=== PATIENT | female | born 1950 | race American Indian/Alaskan Native ===

== ENCOUNTER 2017-06-18 14:27 | Outpatient (CLI) | payer MEDICARE ==
--- NOTE | 2017-06-21 08:32 | Mammography Report ---
RIGHT DIGITAL DIAGNOSTIC MAMMOGRAM with CAD: 06/18/17 14:27:00 CLINICAL: Status post right benign biopsy for calcifications. COMPARISON:12/21/16 FINDINGS: Stable upper postsurgical scar and stable scattered benign calcifications. Several small right axillary lymph nodes are new compared to the last exam and one of the lymph nodes has an irregular margin which requires additional evaluation. It measures 9 mm. IMPRESSION: Stable benign postsurgical changes. However, a right axillary lymph node requires additional evaluation. We will attempt to obtain prior mammograms for UYDITH comparison. BI-RADS CATEGORY: 0--Needs Additional Evaluation ACR BI-RADS MAMMOGRAPHIC CODES: 0 = Needs additional imaging evaluation; 1 = Negative; 2 = Benign; 3 = Probably benign; 4 = Suspicious; 5 = Malignant; 6 = Known biopsy-proven malignancy COMMENT: 1. Dense breast tissue, i.e., adenosis, fibrocystic changes, etc., may obscure an underlying neoplasm. 2. Approximately 10% of cancers are not detected with mammography. 3. A negative mammography report should not delay biopsy if a clinically suspicious mass is present. COMMENT: Patient follow-up letters are generated by our [employer] application.
== END 2017-06-18 14:28 | disposition home or self-care (01) ==
LOC: SPVWC 14:27
PROVIDERS: ATTEND Surgery
DX: R92.1 Mammographic calcification found on diagnostic imaging of breast (principal)
CPT/HCPCS: G0206-RT

== ENCOUNTER 2018-01-14 13:53 | Outpatient (CLI) | payer MEDICARE ==
--- NOTE | 2018-01-14 14:41 | Mammography Report ---
BILATERAL DIGITAL SCREENING MAMMOGRAM with CAD : 01/14/18 13:53:00 CLINICAL: Routine screening.History of a benign right surgical biopsy for calcifications 06/20/16. COMPARISON:12/11/16 FINDINGS: The breasts are heterogeneously dense, which may obscure small masses.Stable right upper postsurgical scar. Stable bilateral benign calcifications. No mass, architectural distortion or suspicious calcifications. IMPRESSION: No mammographic evidence of malignancy. BI-RADS CATEGORY: 2 -- Benign RECOMMENDATION: Routine mammographic screening in one year. COMMENT: Patient follow-up letters are generated by our [employer] application.
== END 2018-01-14 13:54 | disposition home or self-care (01) ==
LOC: SPVWC 13:53
PROVIDERS: ATTEND Surgery
DX: Z12.31 Encounter for screening mammogram for malignant neoplasm of breast (principal); I10 Essential (primary) hypertension; Z90.49 Acquired absence of other specified parts of digestive tract; Z87.891 Personal history of nicotine dependence
CPT/HCPCS: 77067

== ENCOUNTER 2018-11-17 18:01 | Emergency (ER) | payer MEDICARE ==
--- NOTE | 2018-11-17 18:34 | Emergency Department Report ---
ED General Adult HPI - General Chief complaint: Dyspnea/Respdistress Stated complaint: FOREIGN BODY IN THROAT Time Seen by Provider: 11/17/18 18:26 Source: patient Mode of arrival: Ambulatory Limitations: No Limitations - History of Present Illness Initial comments: Patient is 68-year-old female with history of hypertension. Patient brought to the ER stating that she had a chicken bone stuck in her throat while she was eating. Patient is having difficulty swallowing with his obvious drooling. Patient denied any chest pain, weakness numbness or tingling sensation. Severity scale (0 -10): 8 - Related Data Home Medications Medication Instructions Recorded Confirmed Last Taken Amlodipine Besylate/Benazepril 1 each PO QDAY 06/11/16 06/11/16 06/20/16 05:30 [Lotrel 10-40 mg] Cholecalciferol Vit D3 [Vitamin D3] 1,000 unit PO QDAY 06/11/16 06/11/16 06/19/16 Cyanocobalamin (Vitamin B-12) 1,000 mcg PO QDAY 06/11/16 06/11/16 06/19/16 [B-12] Cyclobenzaprine [Flexeril] 10 mg PO TID 06/11/16 06/11/16 06/20/16 05:30 Morphine Sulfate [Morphine Sulfate 30 mg PO QPM 06/11/16 06/11/16 06/19/16 ER] Morphine Sulfate [Morphine Sulfate 120 mg PO QAM 06/11/16 06/11/16 06/20/16 05:30 ER] oxyCODONE [Roxicodone] 10 mg PO Q6HR 06/11/16 06/11/16 06/20/16 05:30 Previous Rx's Medication Instructions Recorded Last Taken Type HYDROcodone/APAP 5-325 [[place] 1 each PO Q6HR PRN #30 tablet 06/20/16 Unknown Rx 5/325] Allergies Allergy/AdvReac Type Severity Reaction Status Date / Time aspirin Allergy Upset Verified 06/11/16 11:50 stomach sulfamethoxazole Allergy Rash Verified 06/11/16 11:50 [From Bactrim] trimethoprim [From Bactrim] Allergy Rash Verified 06/11/16 11:50 ED Review of Systems ROS: Stated complaint: FOREIGN BODY IN THROAT Other details as noted in HPI Comment: All other systems reviewed and negative Constitutional: denies: chills, fever ENT: throat pain Respiratory: denies: cough, shortness of breath, SOB with exertion, SOB at rest, wheezing Cardiovascular: denies: chest pain, palpitations Gastrointestinal: denies: abdominal pain, nausea, vomiting, diarrhea, co nstipation, hematemesis, melena Neurological: denies: headache, weakness, numbness, paresthesias, confusion, abnormal gait ED Past Medical Hx - Past Medical History Hx Hypertension: Yes (FOR 15+ YRS, DR. TEE FLORES- PCP) Hx HIV: No - Social History Smoking Status: Unknown if ever smoked Substance Use Type: None - Medications Home Medications: Home Medications Medication Instructions Recorded Confirmed Last Taken Type Amlodipine Besylate/Benazepril 1 each PO QDAY 06/11/16 06/11/16 06/20/16 05:30 History [Lotrel 10-40 mg] Cholecalciferol Vit D3 [Vitamin D3] 1,000 unit PO QDAY 06/11/16 06/11/16 06/19/16 History Cyanocobalamin (Vitamin B-12) 1,000 mcg PO QDAY 06/11/16 06/11/16 06/19/16 History [B-12] Cyclobenzaprine [Flexeril] 10 mg PO TID 06/11/16 06/11/16 06/20/16 05:30 History Morphine Sulfate [Morphine Sulfate 30 mg PO QPM 06/11/16 06/11/16 06/19/16 History ER] Morphine Sulfate [Morphine Sulfate 120 mg PO QAM 06/11/16 06/11/16 06/20/16 05:30 History ER] oxyCODONE [Roxicodone] 10 mg PO Q6HR 06/11/16 06/11/16 06/20/16 05:30 History HYDROcodone/APAP 5-325 [[place] 1 each PO Q6HR PRN #30 tablet 06/20/16 Unknown Rx 5/325] ED Physical Exam - General Limitations: No Limitations General appearance: alert, anxious, other (drooling) - Head Head exam: Present: atraumatic, normocephalic, normal inspection - ENT ENT exam: Present: normal exam, normal orophraynx, mucous membranes moist - Neck Neck exam: Present: normal inspection, full ROM. Absent: tenderness, meningismus, lymphadenopathy, thyromegaly - Respiratory Respiratory exam: Present: normal lung sounds bilaterally - Cardiovascular Cardiovascular Exam: Present: regular rate, normal rhythm, normal heart sounds - GI/Abdominal GI/Abdominal exam: Present: soft, normal bowel sounds. Absent: distended, tenderness, guarding, rebound, rigid, organomegaly, mass, bruit, pulsatile mass - Extremities Exam Extremities exam: Present: normal inspection, full ROM, normal capillary refill - Back Exam Back exam: Present: normal inspection, full ROM. Absent: tenderness, CVA tenderness (R), CVA tenderness (L), muscle spasm, paraspinal tenderness, verte bral tenderness - Neurological Exam Neurological exam: Present: alert, oriented X3, CN II-XII intact - Skin Skin exam: Present: warm, intact, normal color ED Course Vital Signs 11/17/18 11/17/18 11/17/18 18:11 18:35 18:44 Temperature Pulse Rate 75 79 Respiratory 18 18 18 Rate Blood Pressure 170/65 Blood Pressure 175/74 [Right] O2 Sat by Pulse 95 99 99 Oximetry 11/17/18 11/17/18 11/17/18 20:11 21:29 21:58 Temperature 98.3 F 98.3 F Pulse Rate 75 78 77 Respiratory 16 20 14 Rate Blood Pressure 136/78 128/56 Blood Pressure 134/59 [Right] O2 Sat by Pulse 99 100 97 Oximetry 11/17/18 11/17/18 11/17/18 22:13 22:28 22:52 Temperature Pulse Rate 67 72 79 Respiratory 15 20 16 Rate Blood Pressure 119/53 126/63 Blood Pressure 142/89 [Right] O2 Sat by Pulse 99 100 99 Oximetry - Reevaluation(s) Reevaluation #1: 11/17/18 23:40 Patient stated that she is feeling much better. Patient had an endoscopy removal of the chicken bone with no complication. Patient observed in the emergency room for conscious sedation. Patient is alert oriented 3 no acute distress. ED Medical Decision Making - Lab Data Result diagrams: 11/17/18 19:18 11/17/18 19:18 - Radiology Data Radiology results: report reviewed - Medical Decision Making Patient is 68-year-old female with history of hypertension. Patient brought to the ER stating that she had a chicken bone stuck in her throat while she was eating. Patient is having difficulty swallowing with his obvious drooling. Patient denied any chest pain, weakness numbness or tingling sensation. CT soft tissue neck showed a blunted stuck in the proximal esophagus at the level of the thyroid gland. I discussed the patient is Dr. Disla. He stated that he is coming to do an endoscopy on the patient. Critical care attestation.: If time is entered above; I have spent that time in minutes in the direct care of this critically ill patient, excluding procedure time. ED Disposition Clinical Impression: Impacted foreign body in esophagus Disposition: - TO HOME OR SELFCARE Is pt being admited?: Yes Condition: Good Instructions: Foreign Body in Pharynx (ED), Moderate Sedation (ED) Referrals: PRIMARY CARE, [Primary Care Provider] - 3-5 Days
[2018-11-17 19:30] LABS: Basophils % (Auto) 0.8 % (0.0-1.8); Eosinophils # (Auto) 0.3 K/mm3 (0.0-0.4); Eosinophils % (Auto) 4.5 % (0.0-4.3); Hematocrit 38.9 % (30.3-42.9); Hemoglobin 12.7 gm/dl (10.1-14.3); Lymphocytes # (Auto) 2.1 K/mm3 (1.2-5.4); Lymphocytes % (Auto) 36.2 % (13.4-35.0); Mean Corpuscular HGB Conc 33 % (30-34); Mean Corpuscular Volume 92 fl (79-97); Monocytes # (Auto) 0.5 K/mm3 (0.0-0.8); Monocytes % (Auto) 8.7 % (0.0-7.3); Platelet Count 273 K/mm3 (140-440); Red Blood Count 4.25 M/mm3 (3.65-5.03); Red Cell Distribution Width 17.9 % (13.2-15.2)
--- NOTE | 2018-11-17 19:45 | Cat Scan Report ---
PROCEDURE: CT neck without contrast. TECHNIQUE: Computerized tomography of the soft tissue neck was performed without contrast material. This study is performed without intravascular contrast material and its sensitivity for pathology, in cluding neoplasms, inflammation, abscess, free fluid, thrombosis, and arterial dissection, is reduced compared with a contrast enhanced study. CT DOSE LENGTH PRODUCT: 413.6 mGycm HISTORY: chicken bone stuck in the esophagus COMPARISONS: None. FINDINGS: The nasopharynx, oropharynx and hypopharynx appear normal. The larynx appears normal. The thyroid gla nd is normal in size. There is a foreign body consistent with a bone oriented transversely in the pro ximal esophagus. This is located at the level of the thyroid gland. The bone measures approximately 2 .4 cm in length by 0.25 cm in width. There is no evidence of soft tissue gas to suggest perforation o f the esophagus. There are no fluid collections. The parotid and submandibular salivary glands appear normal. There is no cervical adenopathy. The bones appear intact. The mastoid air cells and paranasa l sinuses are clear as far as visualized. IMPRESSION: Bone stuck in proximal esophagus at the level of the thyroid gland. This document is electronically signed by Allan Pemberton MD., November 17 2018 07:43:52 PM ET
[2018-11-17 19:56] LABS: BUN/Creatinine Ratio 21; Blood Urea Nitrogen 15 mg/dL (7-17); Calcium 9.8 mg/dL (8.4-10.2); Hemolysis Index 8
[2018-11-17] MEDS ORDERED: ZOFRAN ONE (20:00)
[2018-11-17] MEDS ORDERED: MORPHINE ONE (20:00)
[2018-11-17] MEDS ORDERED: MORPHINE IV ONE (20:07)
[2018-11-17] MEDS ORDERED: ZOFRAN IV ONE (20:08)
[2018-11-17] MEDS ORDERED: XYLOCAINE 2% INFILTRATI ONE (20:48)
[2018-11-17] MEDS ORDERED: LIDOCAINE VISCOUS 2% ONE (20:49)
[2018-11-17] MEDS ORDERED: DIPRIVAN 10 MG/ML IV ONE ×2 (20:49→22:05)
[2018-11-17] MEDS ORDERED: NACL 0.9% 1000 ML 1,000 ML ONE (20:55)
--- NOTE | 2018-11-17 21:17 | Anesthesia Day of Surgery ---
Anesthesia Day of Surgery - Day of Surgery Patient Examined: Yes Patient H&P Reviewed: Yes Patient is NPO: No Beta Blockers: No Cardiac Clearance: No Pulmonary Clearance: No Gabino's Test: N/A
--- NOTE | 2018-11-17 21:24 | Anesthesia Consultation ---
Anesthesia Consult and Med Hx - Pulmonary Exam CTA: Yes - Cardiac Exam Cardiac Exam: RRR - Pre-Operative Health Status ASA Pre-Surgery Classification: ASA3, Emergency Proposed Anesthetic Plan: MAC (.) - Pulmonary Hx Smoking: Yes (CIGARETTES < 1/2 PPD X 2 YRS, QUIT 40 YRS AGO) Hx Sleep Apnea: No - Cardiovascular System Hx Hypertension: Yes (FOR 15+ YRS, DR. TEE FLORES- PCP) - Central Nervous System Hx Back Pain: Yes (AMBULATES WITH CANE, SCIATICA) Hx Psychiatric Problems: No - Gastrointestinal Hx Gastroesophageal Reflux Disease: Yes - Other Systems Hx Cancer: No
[2018-11-17] MEDS ORDERED: HURRICAINE ONE 20% TOPICAL SPRAY MM NR (21:58)
[2018-11-17] MEDS ORDERED: NACL 0.9% 1000 ML 1,000 ML IV SCH (22:00)
--- NOTE | 2018-11-17 22:06 | Short Stay Summary ---
Short Stay Documentation Date of service: 11/17/18 Narrative H&P: Pt presented to ER after eating chicken and swallowing bone. Complains of throat pain, radiating up R side and into ear. ER CT shows bone near thyroid gland. Pt has constant pain, and unable to speak clearly due to pain. No SOB or chest pain. No prior similar symptoms. - History Past Medical History: arthritis, hypertension Past Surgical History: Other (Gastric bypass) Social history: no significant social history, no smoking, no alcohol abuse - Allergies and Medications Current Medications: Allergies aspirin Allergy (Verified 06/11/16 11:50) Upset stomach sulfamethoxazole [From Bactrim] Allergy (Verified 06/11/16 11:50) Rash trimethoprim [From Bactrim] Allergy (Verified 06/11/16 11:50) Rash Home Medications Medication Instructions Recorded Confirmed Last Taken Type Amlodipine Besylate/Benazepril 1 each PO QDAY 06/11/16 06/11/16 06/20/16 05:30 History [Lotrel 10-40 mg] Cholecalciferol Vit D3 [Vitamin D3] 1,000 unit PO QDAY 06/11/16 06/11/16 06/19/16 History Cyanocobalamin (Vitamin B-12) 1,000 mcg PO QDAY 06/11/16 06/11/16 06/19/16 History [B-12] Cyclobenzaprine [Flexeril] 10 mg PO TID 06/11/16 06/11/16 06/20/16 05:30 History Morphine Sulfate [Morphine Sulfate 30 mg PO QPM 06/11/16 06/11/16 06/19/16 History ER] Morphine Sulfate [Morphine Sulfate 120 mg PO QAM 06/11/16 06/11/16 06/20/16 05:30 History ER] oxyCODONE [Roxicodone] 10 mg PO Q6HR 06/11/16 06/11/16 06/20/16 05:30 History HYDROcodone/APAP 5-325 [[place] 1 each PO Q6HR PRN #30 tablet 06/20/16 Unknown Rx 5/325] Active Medications Sodium Chloride (Nacl 0.9% 1000 Ml) 1,000 mls @ 50 mls/hr IV DIRECT YESSICA - Physical exam General appearance: mild distress HEENT: Atraumatic, PERRLA, EOMI, Other (No tenderness, no masses) Lungs: Clear to auscultation Heart: Regular rate, Normal S1, Normal S2 Gastrointestinal: normal, normoactive bowel sounds Extremities: No edema - Brief post op/procedure progress note Date of procedure: 11/17/18 Pre-op diagnosis: Chicken bone impaction Post-op diagnosis: other (Chicken bone in esophagus, Gastric bypass anatomy) Procedure: EGD with foreign body extraction Anesthesia: MAC Findings: 1. Chicken bone - initially lodged just below UES, transited into gastric pouch with puffs of air. Grasped with Raptor forceps, after trying a snare, and removed atraumatically. 2. Otherwise normal esophagus. 3. Normal gastric pouch, with gastric bypass anatomy. Surgeon: BRIANA WALLIS Estimated blood loss: minimal Pathology: none Condition: stable - Disposition Condition at discharge: Good Disposition: DC-01 TO HOME OR SELFCARE Short Stay Discharge Plan Diet: regular Follow up with: PRIMARY CARE, [Primary Care Provider] - 3-5 Days
[2018-11-17] MEDS ORDERED: HURRICAINE ONE 20% TOPICAL SPRAY MM (22:26)
--- NOTE | 2018-11-17 23:09 | Operative Report ---
PROCEDURE: Upper endoscopy with foreign body extraction. PREOPERATIVE DIAGNOSIS: Chicken bone in the esophagus. POSTOPERATIVE DIAGNOSES: Chicken bone in the esophagus, and gastric bypass anatomy. SEDATION: MAC by Anesthesia. HISTORY: The patient is a 68-year-old woman who presented after having eaten chicken wings with a sensation of a bone in her throat. She had neck pain radiating along the right side to her right ear. CT showed a chicken bone in the region of the thyroid gland. Procedure, indications, risks, and benefits were explained and consent was obtained. DESCRIPTION OF PROCEDURE: The patient was placed in left lateral decubitus position and sedated. FITiST video upper endoscope was passed through the mouth and oropharynx into the upper esophageal sphincter. There, a chicken bone was noted, but with puffs of air, it went down in the esophagus and atraumatically went into the gastric pouch. There, initially a snare was attempted to be used, and then subsequently a raptor grasping forceps was used to catch the bone at the tip and pull it out atraumatically through the esophagus and out the mouth. Repeat endoscopy was then performed. FINDINGS: 1. Chicken bone in the esophagus - ultimately removed as noted above. 2. Otherwise, normal esophagus with sharp Z-line located at 35 cm from the incisors. 3. Gastric pouch with gastric bypass anatomy with afferent and efferent jejunal limbs noted. Normal appearing anastomosis. The patient tolerated the procedure well without immediate complications. IMPRESSION: 1. Chicken bone - removed from the esophagus. 2. Gastric pouch. 3. Normal gastric bypass anatomy. PLAN: Follow up as needed. JOB# [id number] HRC/NTS
[2018-11-18 19:30] VITALS: BP 124/68
== END 2018-11-18 01:59 | disposition home or self-care (01) ==
LOC: ED 18:01
DX: T18.128A Food in esophagus causing other injury, initial encounter (principal); X58.XXXA Exposure to other specified factors, initial encounter; Y93.89 Activity, other specified; Y92.89 Other specified places as the place of occurrence of the external cause; Y99.8 Other external cause status
CPT/HCPCS: 36415; 43247; 70490; 80048; 85025; 96374; 96375; 99284; J2270; J2405; J2704; J7030

== ENCOUNTER 2019-07-21 14:33 | Outpatient (CLI) | payer MEDICARE ==
--- NOTE | 2019-07-21 15:48 | Mammography Report ---
DIGITAL SCREENING MAMMOGRAM WITH CAD, 07/21/2019 INDICATION: Routine screening mammography. History of right surgical biopsy for benign calcifications . TECHNIQUE: Digital bilateral 2D mammography was obtained in the craniocaudal and mediolateral obliq ue projections. This examination was interpreted with the benefit of Computer-Aided Detection analysi s. COMPARISON: 01/14/2018 FINDINGS: Breast Density: The breasts are heterogeneously dense, which may obscure small masses. There is no evidence of new mass, suspicious calcifications or architectural distortion in either sera ast. Right upper benign postsurgical scar. Scattered bilateral calcifications with benign morphology. IMPRESSION: No mammographic evidence of malignancy. Follow up recommendation: Routine yearly BI-RADS Category 2: Benign. A "normal" or negative report should not discourage follow up or biopsy of a clinically significant f inding. A written summary of these findings will be mailed to the patient. The patient will be entered into a mammography reporting system which will generate a reminder letter for the patient's next appointmen t at the appropriate interval. The [employer] recommends yearly mammograms starting at age 40 and continuing as l linda as a woman is in good health. Breast MRI is recommended for women with an approximate 20-25% or greater lifetime risk of breast cancer, including women with a strong family history of breast or ova cheri cancer or who have been treated for Hodgkin's disease. Signer Name: Bishop Mckeon MD Signed: 07/21/2019 3:44 PM Workstation Name: [id number]
== END 2019-07-21 14:34 | disposition home or self-care (01) ==
LOC: SPVWC 14:33
PROVIDERS: ATTEND Surgery
DX: Z12.31 Encounter for screening mammogram for malignant neoplasm of breast (principal)
CPT/HCPCS: 77067

== ENCOUNTER 2020-07-26 14:57 | Outpatient (CLI) | payer MEDICARE ==
--- NOTE | 2020-07-27 07:23 | Mammography Report ---
DIGITAL SCREENING MAMMOGRAM WITH CAD, 07/26/2020 CLINICAL INFORMATION / INDICATION: Routine screening mammography. TECHNIQUE: Digital bilateral 2D mammography was obtained in the craniocaudal and mediolateral obliqu e projections. This examination was interpreted with the benefit of Computer-Aided Detection analysis . COMPARISON: 07/21/2019 FINDINGS: Breast Density: There are scattered areas of fibroglandular density. No dominant mass, suspicious calcifications, or architectural distortion in either breast. Multiple bilateral benign-appearing calcifications are again seen. Right surgical changes are again n oted. IMPRESSION: No mammographic evidence of malignancy. Follow up recommendation: Routine yearly BI-RADS Category 2: Benign. A "normal" or negative report should not discourage follow up or biopsy of a clinically significant f inding. A written summary of these findings will be mailed to the patient. The patient will be entered into a mammography reporting system which will generate a reminder letter for the patient's next appointmen t at the appropriate interval. The [employer] recommends yearly mammograms starting at age 40 and continuing as l linda as a woman is in good health. Breast MRI is recommended for women with an approximate 20-25% or greater lifetime risk of breast cancer, including women with a strong family history of breast or ova cheri cancer or who have been treated for Hodgkin's disease. Signer Name: Luis Enrique Huggins MD Signed: 07/27/2020 7:18 AM Workstation Name: [id number]
== END 2020-07-26 14:58 | disposition home or self-care (01) ==
LOC: SPVWC 14:57
PROVIDERS: ATTEND Surgery
DX: Z12.31 Encounter for screening mammogram for malignant neoplasm of breast (principal); N64.89 Other specified disorders of breast
CPT/HCPCS: 77067

== ENCOUNTER 2021-02-02 02:47 | Observation (INO) | payer MEDICARE ==
[2021-02-02] MEDS ORDERED: ADENOSINE 6 MG/2 ML INJ IV ONE (02:50)
--- NOTE | 2021-02-02 02:55 | Emergency Department Report ---
HPI - General Time Seen by Provider: 02/02/21 02:49 - HPI HPI: Room 4 The patient is a 71-year-old female present with a chief complaint of palpitations and chest pain. The patient states she was laying down at rest when she suddenly developed palpitations. Patient states she did develop pain in her chest with the palpitations. EMS was called and arrived on scene and found the patient in SVT with a heart rate in 170s. EMS was unable to obtain IV access so no medication was given that they state the vagal maneuvers the patient heart rate transiently decreased to 105 but then went back to the 170s. Patient denies any previous diagnoses of SVT or atrial fibrillation ED Past Medical Hx - Past Medical History Hx Hypertension: Yes (FOR 15+ YRS, DR. TEE FLORES- PCP) Hx HIV: No - Family History Family history: no significant - Social History Smoking Status: Unknown if ever smoked Substance Use Type: None - Medications Home Medications: Home Medications Medication Instructions Recorded Confirmed Last Taken Type Amlodipine Besylate/Benazepril 1 each PO QDAY 06/11/16 06/11/16 06/20/16 05:30 History [Lotrel 10-40 mg] Cholecalciferol Vit D3 [Vitamin D3] 1,000 unit PO QDAY 06/11/16 06/11/16 06/19/16 History Cyanocobalamin (Vitamin B-12) 1,000 mcg PO QDAY 06/11/16 06/11/16 06/19/16 History [B-12] Cyclobenzaprine [Flexeril] 10 mg PO TID 06/11/16 06/11/16 06/20/16 05:30 History Morphine Sulfate [Morphine Sulfate 30 mg PO QPM 06/11/16 06/11/16 06/19/16 History ER] Morphine Sulfate [Morphine Sulfate 120 mg PO QAM 06/11/16 06/11/16 06/20/16 05:30 History ER] oxyCODONE [Roxicodone] 10 mg PO Q6HR 06/11/16 06/11/16 06/20/16 05:30 History HYDROcodone/APAP 5-325 [[place] 1 each PO Q6HR PRN #30 tablet 06/20/16 Unknown Rx 5/325] ED Review of Systems ROS: Stated complaint: SVT Other details as noted in HPI Constitutional: no symptoms reported Eyes: denies: eye pain Respiratory: no symptoms reported Cardiovascular: chest pain, palpitations Endocrine: no symptoms reported Gastrointestinal: denies: abdominal pain Genitourinary: denies: dysuria Musculoskeletal: denies: back pain Neurological: denies: headache Physical Exam - Physical Exam Physical Exam: GENERAL: The patient is well-developed well-nourished female lying on stretcher appearing to be in mild discomfort. [] HEENT: Normocephalic. Atraumatic. Extraocular motions are intact. Patient has moist mucous membranes. NECK: Supple. Trachea midline CHEST/LUNGS: Clear to auscultation. There is no respiratory distress noted. HEART/CARDIOVASCULAR: Regular. There is tachycardia. There is no gallop rub or murmur. ABDOMEN: Abdomen is soft, nontender. Patient has normal bowel sounds. There is no abdominal distention. SKIN: There is no rash. There is no edema. There is no diaphoresis. NEURO: The patient is awake, alert, and oriented. The patient is cooperative. The patient has no focal neurologic deficits. The patient has normal speech. GCS 15 MUSCULOSKELETAL:There is no evidence of acute injury. ED Course - Reevaluation(s) Reevaluation #1: 02/02/21 03:04 SVT converted after 6 of adenosine ED Medical Decision Making - Lab Data Result diagrams: 02/02/21 03:08 02/02/21 03:07 - EKG Data -: EKG Interpreted by Me Rate: tachycardia - EKG Data When compared to previous EKG there are: previous EKG unavailable Interpretation: other (SVT at 175 bpm) 02/02/21 04:06 EKG #2 shows normal sinus rhythm at 96 bpm. - Radiology Data Radiology results: report reviewed (Chest x-ray), image reviewed (Chest x-ray) interpreted by me: Chest x-ray-no definite focal infiltrates, no pneumothorax. No foreign body seen [facility] [address] [place] [address] XRay Report Signed Patient: SARAH SUE MR#: [id number] : 1950 Acct:[id number] Age/Sex: 71 / F ADM Date: 02/02/21 Loc: ED Attending Dr: Ordering Physician: RUSTY NEVILLE MD Date of Service: 02/02/21 Procedure(s): XR chest 1V ap Accession Number(s): [id number] cc: RUSTY NEVILLE MD Fluoro Time In Minutes: CHEST 1 VIEW INDICATION / CLINICAL INFORMATION: SVT, chest pain. FINDINGS: SUPPORT DEVICES: None. HEART / MEDIASTINUM: No significant abnormality. LUNGS / PLEURA: Slight bilateral interstitial prominence could be secondary to early interstitial edema. No pleural effusion or pneumothorax. Signer Name: Sylvain Bal MD Signed: 02/02/2021 3:32 AM Workstation Name: [id number] Transcribed By: BC Dictated By: Sylvain Bal MD Electronically Authenticated By: Sylvain Bal MD Signed Date/Time: 02/02/21331 DD/ 0 TD/TT: Print Cancel - Differential Diagnosis SVT, a flutter, hypothyroidism, hypomagnesemia Critical care attestation.: If time is entered above; I have spent that time in minutes in the direct care of this critically ill patient, excluding procedure time. ED Disposition Clinical Impression: SVT (supraventricular tachycardia), Chest pain Disposition: 09 OP ADMIT IP TO THIS HOSP Is pt being admited?: Yes Does the pt Need Aspirin: Yes Condition: Fair Instructions: Nonspecific Chest Pain, Adult Time of Disposition: 04:07 (Hospitalist paged (Dr Kay)) Heart Score - HEART Score History: Moderately suspicious EKG: Normal Age: > 65 Risk factors: 1-2 risk factors Troponin: < normal limit HEART Score: 4 - EKG Read Time Time EKG Completed: 02:50 EKG Read Time: 02:54
[2021-02-02 03:36] LABS: Basophils % (Auto) 0.6 % (0.0-1.8); Eosinophils # (Auto) 0.5 K/mm3 (0.0-0.4); Eosinophils % (Auto) 7.2 % (0.0-4.3); Hematocrit 35.3 % (30.3-42.9); Hemoglobin 11.5 gm/dl (10.1-14.3); Lymphocytes # (Auto) 1.9 K/mm3 (1.2-5.4); Lymphocytes % (Auto) 25.2 % (13.4-35.0); Mean Corpuscular HGB Conc 32 % (30-34); Mean Corpuscular Volume 88 fl (79-97); Monocytes # (Auto) 0.5 K/mm3 (0.0-0.8); Monocytes % (Auto) 6.7 % (0.0-7.3); Platelet Count 356 K/mm3 (140-440); Red Blood Count 4.03 M/mm3 (3.65-5.03); Red Cell Distribution Width 19.4 % (13.2-15.2)
--- NOTE | 2021-02-02 03:36 | XRay Report ---
CHEST 1 VIEW INDICATION / CLINICAL INFORMATION: SVT, chest pain. FINDINGS: SUPPORT DEVICES: None. HEART / MEDIASTINUM: No significant abnormality. LUNGS / PLEURA: Slight bilateral interstitial prominence could be secondary to early interstitial trevor ma. No pleural effusion or pneumothorax. Signer Name: Sylvain Bal MD Signed: 02/02/2021 3:32 AM Workstation Name: [id number]
[2021-02-02 03:45] LABS: BUN/Creatinine Ratio 24; Blood Urea Nitrogen 22 mg/dL (7-17); Calcium 10.5 mg/dL (8.4-10.2); Hemolysis Index 3
[2021-02-02 03:46] LABS: Creatine Kinase MB 1.7 ng/mL (0.0-4.0)
[2021-02-02 03:55] LABS: Free T4 (Free Thyroxine) 1.17 ng/dL (0.76-1.46)
[2021-02-02] MEDS: ASPIRIN 325 MG TAB PO ONE ×2 (04:46→05:13)
--- NOTE | 2021-02-02 05:16 | History and Physical Report ---
History of Present Illness Date of examination: 02/02/21 Date of admission: 02/02/21 04:10 Chief complaint: chest pain History of present illness: The patient is a 71-year-old female present with a chief complaint of palpitations and chest pain. The patient states she was laying down at rest when she suddenly developed palpitations. Patient states she did develop pain in her chest with the palpitations. EMS was called and arrived on scene and found the patient in SVT with a heart rate in 170s. EMS was unable to obtain IV access so no medication was given that they state the vagal maneuvers the patient heart rate transiently decreased to 105 but then went back to the 170s. Patient denies any previous diagnoses of SVT or atrial fibrillation ED work-up shows WBC 7.5, hemoglobin 11.5, platelets 356, 138, potassium 4.2, creatinine 0.9, serum glucose 140, magnesium 2.7, serum glucose 140 chest x-ray done no pleural effusion or pneumothorax. Showed a slight bilateral interstitial prominence could be secondary to edema. Patient seen in the ED at bedside patient alert oriented x3. Patient reported history of low back pain and gastric bypass. Patient said that she came because she is having palpitation and chest pain. Monitor in the ED shows a irregular heartbeat. Patient denies chest pain at the time of assessment. Patient also denies alcoh ol, tobacco, and illicit drug use. Past History Past Medical History: hypertension Past Surgical History: hysterectomy, tonsillectomy, bowel surgery (gastric bypass) Social history: prescription drug abuse. denies: Medications and Allergies Allergies Allergy/AdvReac Type Severity Reaction Status Date / Time aspirin Allergy Upset Verified 06/11/16 11:50 stomach sulfamethoxazole Allergy Rash Verified 06/11/16 11:50 [From Bactrim] trimethoprim [From Bactrim] Allergy Rash Verified 06/11/16 11:50 Home Medications Medication Instructions Recorded Confirmed Last Taken Type Amlodipine Besylate/Benazepril 1 each PO QDAY 06/11/16 06/11/16 06/20/16 05:30 History [Lotrel 10-40 mg] Cholecalciferol Vit D3 [Vitamin D3] 1,000 unit PO QDAY 06/11/16 06/11/16 06/19/16 History Cyanocobalamin (Vitamin B-12) 1,000 mcg PO QDAY 06/11/16 06/11/16 06/19/16 History [B-12] Cyclobenzaprine [Flexeril] 10 mg PO TID 06/11/16 06/11/16 06/20/16 05:30 History Morphine Sulfate [Morphine Sulfate 30 mg PO QPM 06/11/16 06/11/16 06/19/16 History ER] Morphine Sulfate [Morphine Sulfate 120 mg PO QAM 06/11/16 06/11/16 06/20/16 05:30 History ER] oxyCODONE [Roxicodone] 10 mg PO Q6HR 06/11/16 06/11/16 06/20/16 05:30 History HYDROcodone/APAP 5-325 [Agar 1 each PO Q6HR PRN #30 tablet 06/20/16 Unknown Rx 5/325] Review of Systems Constitutional: weakness Ears, nose, mouth and throat: no epistaxis, no bleeding gums Cardiovascular: chest pain, palpitations, rapid/irregular heart beat, shortness of breath, high blood pressure, leg edema Respiratory: shortness of breath Gastrointestinal: no melena Rectal: no itching, no hemorrhoids Musculoskeletal: no low back pain, no muscle weakness Integumentary: no rash, no pruritis Neurological: no head injury Psychiatric: anxiety Hematologic/Lymphatic: no easy bruising, no easy bleeding Allergic/Immunologic: no urticaria Exam - Constitutional Vitals: Temp Pulse Resp BP Pulse Ox 85 24 130/69 97 02/02/21 04:31 02/02/21 04:31 02/02/21 04:45 02/02/21 04:45 General appearance: Present: mild distress, obese - EENT Eyes: Present: PERRL ENT: hearing intact, clear oral mucosa - Neck Neck: Present: supple, normal ROM - Respiratory Respiratory effort: normal Respiratory: bilateral: CTA - Cardiovascular Rhythm: irregularly irregular Heart Sounds: Present: S1 & S2. Absent: rub, click - Extremities Extremities: pulses symmetrical, abnormal (edema) Extremity abnormal: edema Peripheral Pulses: within normal limits - Abdominal General gastrointestinal: Present: soft, non-tender, non-distended, normal bowel sounds Female genitourinary: Present: normal - Integumentary Integumentary: Present: clear, warm, dry - Musculoskeletal Musculoskeletal: gait normal, strength equal bilaterally - Psychiatric Psychiatric: appropriate mood/affect, intact judgment & insight, cooperative - Neurologic Neurologic: CNII-XII intact, moves all extremities - Allied Health Allied health notes reviewed: nursing HEART Score - HEART Score EKG: Normal Age: > 65 Risk factors: 1-2 risk factors Troponin: Troponin T < 0.010 ng/mL (0.00-0.029) 02/02/21 03:07 Troponin: < normal limit Results - Labs CBC & Chem 7: 02/02/21 03:08 02/02/21 03:07 Labs: Abnormal lab results 02/02/21 02/02/21 Range/Units 03:07 03:08 RDW 19.4 H (13.2-15.2) % Eos % (Auto) 7.2 H (0.0-4.3) % Eos # (Auto) 0.5 H (0.0-0.4) K/mm3 BUN 22 H (7-17) mg/dL Glucose 140 H (65-100) mg/dL Calcium 10.5 H (8.4-10.2) mg/dL Assessment and Plan - Patient Problems (1) Chest pain Current Visit: Yes Status: Acute Plan to address problem: Continue cardioprotective measures Aspirin, statin, BB, oxygen supplement if needed Check echo and cardiology consult (2) SVT (supraventricular tachycardia) Current Visit: Yes Status: Acute Plan to address problem: Continue beta-blockers Echocardiogram Cardiology consult follow-up with recommendation (3) Essential hypertension Current Visit: Yes Status: Acute Plan to address problem: Monitor vital signs Resume home antihypertensive As needed hydralazine (4) Morbid obesity Current Visit: Yes Status: Acute Plan to address problem: Discussed healthy diet Advised to avoid fatty fried foods and foods rich in concentrated sweetness (5) History of DVT (deep vein thrombosis) Current Visit: Yes Status: Acute Plan to address problem: Continue Eliquis (6) DVT prophylaxis Current Visit: Yes Status: Acute Plan to address problem: On Eliquis
[2021-02-02] MEDS ORDERED: MAGNESIUM HYDROXIDE (MOM) ORAL LIQD UDC PO PRN (05:24)
[2021-02-02] MEDS ORDERED: ALUM-MAG HYDROXIDE-SIMETHICONE 200-200-20MG/5ML ORAL LIQD 30 ML PO PRN (05:24)
[2021-02-02] MEDS ORDERED: METOCLOPRAMIDE 10 MG/2 ML INJ IV PRN (05:24)
[2021-02-02] MEDS ORDERED: SENNOSIDES 8.6 MG TAB PO PRN (05:24)
[2021-02-02] MEDS ORDERED: ONDANSETRON 4 MG/2 ML INJ IV PRN (05:24)
[2021-02-02] MEDS ORDERED: ACETAMINOPHEN 325 MG TAB PO PRN (05:24)
[2021-02-02] MEDS ORDERED: CYCLOBENZAPRINE 10 MG TAB PO PRN (05:28)
[2021-02-02] MEDS ORDERED: hydrALAZINE 20 MG/1 ML INJ IV PRN (06:00)
[2021-02-02] MEDS: FAMOTIDINE 20 MG/2 ML INJ IV SCH ×2 (09:01→22:15)
--- NOTE | 2021-02-02 09:20 | Electrocardiograph Report ---
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
--- NOTE | 2021-02-02 09:20 | Electrocardiograph Report ---
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
--- NOTE | 2021-02-02 09:53 | Progress Note ---
Assessment and Plan Assessment and plan: -- Chest pain Current Visit: Yes Status: Acute Aspirin, statin, BB, oxygen supplement if needed Check echo for LV function ejection fraction and cardiology evaluation noted and appreciated Possible stress test tomorrow --SVT (supraventricular tachycardia) Current Visit: Yes Status: Acute Patient's heart rate was in 170s received adenosine 2 doses Currently patient is in sinus heart rate in 80s to 90s continue beta-blockers llow-up with recommendation --h/o Essential hypertension Current Visit: Yes Status: Acute Moderate control continue current antihypertensives As needed hydralazine -- Morbid obesity BMI 49.8 Current Visit: Yes Status: Acute Patient needs weight reduction when medically stable Diet modification, exercise as tolerated and weight reduction, when stable --History of DVT (deep vein thrombosis) Current Visit: Yes Status: Acute Continue Eliquis. Protocol --full code -DVT prophylaxis Current Visit: Yes Status: Acute Continue Eliquis Closely monitor patient and adjust management as needed Plan of care reviewed with patient and her nurse History Interval history: I have seen and examined the patient at the bedside Patient's chart and medications reviewed Complaints of some intermittent chest pain Not in acute distress Vital signs noted Hospitalist Physical - Constitutional Vitals: Temp Pulse Resp BP Pulse Ox 98.3 F 80 19 130/62 99 02/02/21 07:56 02/02/21 07:56 02/02/21 07:56 02/02/21 07:56 02/02/21 07:56 General appearance: Present: mild distress, well-nourished, obese (Morbidly obese) - EENT Eyes: Present: PERRL, EOM intact - Neck Neck: Present: supple, normal ROM - Respiratory Respiratory effort: normal Respiratory: bilateral: diminished, rhonchi, negative: rales, wheezing - Cardiovascular Rhythm: regular Heart Sounds: Present: S1 & S2 - Extremities Extremities: no ischemia, No edema - Abdominal General gastrointestinal: soft, non-tender, non-distended, normal bowel sounds - Integumentary Integumentary: Present: clear, warm - Psychiatric Psychiatric: appropriate mood/affect, cooperative - Neurologic Neurologic: CNII-XII intact, moves all extremities HEART Score - HEART Score EKG: Normal Age: > 65 Risk factors: 1-2 risk factors Troponin: Troponin T < 0.010 ng/mL (0.00-0.029) 02/02/21 03:07 Troponin: < normal limit Results - Labs CBC & Chem 7: 02/02/21 03:08 02/02/21 03:07 Labs: Laboratory Last Values WBC 7.5 K/mm3 (4.5-11.0) 02/02/21 03:08 RBC 4.03 M/mm3 (3.65-5.03) 02/02/21 03:08 Hgb 11.5 gm/dl (10.1-14.3) 02/02/21 03:08 Hct 35.3 % (30.3-42.9) 02/02/21 03:08 MCV 88 fl (79-97) 02/02/21 03:08 MCH 28 pg (28-32) 02/02/21 03:08 MCHC 32 % (30-34) 02/02/21 03:08 RDW 19.4 % (13.2-15.2) H 02/02/21 03:08 Plt Count 356 K/mm3 (140-440) 02/02/21 03:08 Lymph % (Auto) 25.2 % (13.4-35.0) 02/02/21 03:08 [place] % (Auto) 6.7 % (0.0-7.3) 02/02/21 03:08 Eos % (Auto) 7.2 % (0.0-4.3) H 02/02/21 03:08 Baso % (Auto) 0.6 % (0.0-1.8) 02/02/21 03:08 Lymph # (Auto) 1.9 K/mm3 (1.2-5.4) 02/02/21 03:08 [place] # (Auto) 0.5 K/mm3 (0.0-0.8) 02/02/21 03:08 Eos # (Auto) 0.5 K/mm3 (0.0-0.4) H 02/02/21 03:08 Baso # (Auto) 0.0 K/mm3 (0.0-0.1) 02/02/21 03:08 Seg Neutrophils % 60.3 % (40.0-70.0) 02/02/21 03:08 Seg Neutrophils # 4.5 K/mm3 (1.8-7.7) 02/02/21 03:08 Sodium 138 mmol/L (137-145) 02/02/21 03:07 Potassium 4.2 mmol/L (3.6-5.0) 02/02/21 03:07 Chloride 102.6 mmol/L (98-107) 02/02/21 03:07 Carbon Dioxide 22 mmol/L (22-30) 02/02/21 03:07 Anion Gap 18 mmol/L 02/02/21 03:07 BUN 22 mg/dL (7-17) H 02/02/21 03:07 Creatinine 0.9 mg/dL (0.6-1.2) 02/02/21 03:07 Estimated GFR > 60 ml/min 02/02/21 03:07 BUN/Creatinine Ratio 24 % 02/02/21 03:07 Glucose 140 mg/dL (65-100) H 02/02/21 03:07 Hemoglobin A1c 5.9 % (4-6) 02/02/21 03:08 Calcium 10.5 mg/dL (8.4-10.2) H 02/02/21 03:07 Magnesium 2.20 mg/dL (1.7-2.3) 02/02/21 03:07 Total Creatine Kinase 55 units/L (30-135) 02/02/21 03:07 CK-MB (CK-2) 1.7 ng/mL (0.0-4.0) 02/02/21 03:07 CK-MB (CK-2) Rel Index 3.0 (0-4) 02/02/21 03:07 Troponin T < 0.010 ng/mL (0.00-0.029) 02/02/21 03:07 TSH 2.000 mlU/mL (0.270-4.200) 02/02/21 03:07 Free T4 1.17 ng/dL (0.76-1.46) 02/02/21 03:07 Arce/IV: Voiding Method Toilet Active Medications - Current Medications Current Medications: Generic Name Dose Route Start Last Admin Trade Name Freq PRN Reason Stop Dose Admin Acetaminophen 650 mg 02/02/21 05:24 Acetaminophen 325 Mg Tab PO Q4H PRN Pain MILD(1-3)/Fever >100.5/WEBER Al Hydrox/Mg Hydrox/Simethicone 30 ml 02/02/21 05:24 Alum-Mag Hydroxide-Simethicone [id number]/5ml Oral Liqd 30 Ml PO Q4H PRN Indigestion Amlodipine Besylate 10 mg 02/02/21 10:00 02/02/21 09:02 Amlodipine 10 Mg Tab PO 10 mg QDAY YESSICA Administration Apixaban 5 mg 02/02/21 10:00 02/02/21 09:02 Apixaban 5 Mg Tab PO 5 mg Q12HR YESSICA Administration Atorvastatin Calcium 40 mg 02/02/21 22:00 Atorvastatin 40 Mg Tab PO QHS YESSICA Carvedilol 6.25 mg 02/02/21 10:00 02/02/21 09:02 Carvedilol 6.25 Mg Tab PO 6.25 mg BID YESSICA Administration Cyclobenzaprine HCl 10 mg 02/02/21 05:28 Cyclobenzaprine 10 Mg Tab PO Q8H PRN Muscle Spasm Famotidine 10 mg 02/02/21 10:00 02/02/21 09:01 Famotidine 20 Mg/2 Ml Inj IV 10 mg BID YESSICA Administration Hydralazine HCl 4 mg 02/02/21 06:00 Hydralazine 20 Mg/1 Ml Inj IV Q4HR PRN HYPERTENSION Magnesium Hydroxide 30 ml 02/02/21 05:24 Magnesium Hydroxide (Mom) Oral Liqd Udc PO Q4H PRN Constipation Metoclopramide HCl 10 mg 02/02/21 05:24 Metoclopramide 10 Mg/2 Ml Inj IV Q6H PRN Nausea And Vomiting Ondansetron HCl 4 mg 02/02/21 05:24 Ondansetron 4 Mg/2 Ml Inj IV Q8H PRN Nausea And Vomiting Senna 8.6 mg 02/02/21 05:24 Sennosides 8.6 Mg Tab PO Q12HR PRN Constipation Sodium Chloride 10 ml 02/02/21 10:00 02/02/21 09:02 Sodium Chloride 0.9% 10 Ml Flush Syringe IV 10 ml BID YESSICA Administration Sodium Chloride 10 ml 02/02/21 05:24 Sodium Chloride 0.9% 10 Ml Flush Syringe IV PRN PRN LINE FLUSH
[2021-02-02] MEDS ORDERED: amLODIPine 10 MG TAB PO SCH (10:00)
[2021-02-02] MEDS ORDERED: carvediloL 6.25 MG TAB PO SCH (10:00)
[2021-02-02] MEDS ORDERED: APIXABAN 5 MG TAB PO SCH (10:00)
--- NOTE | 2021-02-02 10:46 | Consultation ---
History of Present Illness Consult date: 02/02/21 Requesting physician: DARLIN DYER Consult reason: chest pain History of present illness: Pt is a 71-year-old AA female with a hx of HTN who presented with complaints of palpitations and chest pain. Pt states palpitations started while she was resting. She eventually developed substernal chest pressure as well. EMS upon arrival determined that pt was in SVT in the 170s. Review of tele strips in pt's chart confirm SVT at a rate of 173bpm. No IV access was able to be obtained per EMS, and thus vagal maneuvers were performed, which were successful in lowering rate to the 100s according to documentation. Upon review of telemetry since admission, pt has been in SR with PACs in the 80s range. No hx of AF or other arrhythmias. Of note, pt was hospitalized for COVID-19 in November 2020. Chest CTA was neg for PE and BLE Dopplers were neg for DVT at that time. Past History Past Medical History: hypertension Past Surgical History: hysterectomy, tonsillectomy, bowel surgery (gastric bypass (2003)). denies: valve replacement, CABG, PTCA Social history: denies: , smoking, alcohol abuse Family history: no significant family history Medications and Allergies Allergies Allergy/AdvReac Type Severity Reaction Status Date / Time aspirin Allergy Upset Verified 06/11/16 11:50 stomach sulfamethoxazole Allergy Rash Verified 06/11/16 11:50 [From Bactrim] trimethoprim [From Bactrim] Allergy Rash Verified 06/11/16 11:50 Home Medications Medication Instructions Recorded Confirmed Last Taken Type Amlodipine Besylate/Benazepril 1 each PO QDAY 06/11/16 06/11/16 06/20/16 05:30 History [Lotrel 10-40 mg] Cholecalciferol Vit D3 [Vitamin D3] 1,000 unit PO QDAY 06/11/16 06/11/1606/19 History Cyanocobalamin (Vitamin B-12) 1,000 mcg PO QDAY 06/11/16 06/11/16 06/19/16 History [B-12] Cyclobenzaprine [Flexeril] 10 mg PO TID 06/11/16 06/11/16 06/20/16 05:30 History Morphine Sulfate [Morphine Sulfate 30 mg PO QPM 06/11/16 06/11/16 06/19/16 History ER] Morphine Sulfate [Morphine Sulfate 120 mg PO QAM 06/11/16 06/11/16 06/20/16 05:30 History ER] oxyCODONE [Roxicodone] 10 mg PO Q6HR 06/11/16 06/11/16 06/20/16 05:30 History HYDROcodone/APAP 5-325 [Slemp 1 each PO Q6HR PRN #30 tablet 06/20/16 Unknown Rx 5/325] Active Meds: Active Medications Acetaminophen (Acetaminophen 325 Mg Tab) 650 mg PO Q4H PRN PRN Reason: Pain MILD(1-3)/Fever >100.5/WEBER Al Hydrox/Mg Hydrox/Simethicone (Alum-Mag Hydroxide-Simethicone [phone]/5ml Oral Liqd 30 Ml) 30 ml PO Q4H PRN PRN Reason: Indigestion Atorvastatin Calcium (Atorvastatin 40 Mg Tab) 40 mg PO QHS [facility] Cyclobenzaprine HCl (Cyclobenzaprine 10 Mg Tab) 10 mg PO Q8H PRN PRN Reason: Muscle Spasm Famotidine (Famotidine 20 Mg/2 Ml Inj) 10 mg IV BID [facility] Last Admin: 02/02/21 09:01 Dose: 10 mg Documented by: Magnesium Hydroxide (Magnesium Hydroxide (Mom) Oral Liqd Udc) 30 ml PO Q4H PRN PRN Reason: Constipation Metoclopramide HCl (Metoclopramide 10 Mg/2 Ml Inj) 10 mg IV Q6H PRN PRN Reason: Nausea And Vomiting Metoprolol Tartrate (Metoprolol Tartrate 50 Mg Tab) 50 mg PO BID [facility] Ondansetron HCl (Ondansetron 4 Mg/2 Ml Inj) 4 mg IV Q8H PRN PRN Reason: Nausea And Vomiting Senna (Sennosides 8.6 Mg Tab) 8.6 mg PO Q12HR PRN PRN Reason: Constipation Sodium Chloride (Sodium Chloride 0.9% 10 Ml Flush Syringe) 10 ml IV BID [facility] Last Admin: 02/02/21 09:02 Dose: 10 ml Documented by: Sodium Chloride (Sodium Chloride 0.9% 10 Ml Flush Syringe) 10 ml IV PRN PRN PRN Reason: LINE FLUSH Review of Systems Constitutional: no fever, no chills Ears, nose, mouth and throat: no nasal congestion, no sore throat Cardiovascular: chest pain, palpitations, no orthopnea, no edema, no syncope, no lightheadedness, no shortness of breath, no dyspnea on exertion, no paroxysmal nocturnal dyspnea, no claudication Respiratory: no cough, no shortness of breath, no dyspnea on exertion Gastrointestinal: no abdominal pain, no nausea, no vomiting Genitourinary Female: no pelvic pain, no flank pain, no dysuria Musculoskeletal: no neck stiffness, no neck pain, no myalgias Integumentary: no rash, no wounds Neurological: no head injury, no weakness, no numbness, no tingling, no seizures, no syncope, no vertigo, no headaches Endocrine: no cold intolerance, no heat intolerance, no polydipsia, no polyuria Hematologic/Lymphatic: no easy bruising, no easy bleeding Allergic/Immunologic: no anaphylaxis Physical Examination Last Vital Signs Temp 98.3 F 02/02/21 07:56 Pulse 80 02/02/21 07:56 Resp 19 02/02/21 07:56 BP 130/62 02/02/21 07:56 Pulse Ox 99 02/02/21 07:56 General appearance: no acute distress HEENT: Positive: EOMI, Normocephaly, Mucus Membranes Moist Neck: Positive: neck supple, trachea midline. Negative: JVD/HJR Cardiac: Positive: Reg Rate and Rhythm, S1/S2. Negative: Audible Murmur Lungs: Positive: clear to auscultation Neuro: Positive: Grossly Intact Abdomen: Positive: Soft. Negative: Tender Skin: Negative: Rash Musculoskeletal: No Pain Extremities: Present: upper extr. pulses, lower extr. pulses, edema (pedal) Results 02/02/21 03:08 02/02/21 03:07 Cardiac Enzymes 02/02/21 Range/Units 03:07 CK-MB (CK-2) 1.7 (0.0-4.0) ng/mL CBC 02/02/21 Range/Units 03:08 WBC 7.5 (4.5-11.0) K/mm3 RBC 4.03 (3.65-5.03) M/mm3 Hgb 11.5 (10.1-14.3) gm/dl Hct 35.3 (30.3-42.9) % Plt Count 356 (140-440) K/mm3 Lymph # (Auto) 1.9 (1.2-5.4) K/mm3 [place] # (Auto) 0.5 (0.0-0.8) K/mm3 Eos # (Auto) 0.5 H (0.0-0.4) K/mm3 Baso # (Auto) 0.0 (0.0-0.1) K/mm3 Comprehensive Metabolic Panel 02/02/21 Range/Units 03:07 Sodium 138 (137-145) mmol/L Potassium 4.2 (3.6-5.0) mmol/L Chloride 102.6 (98-107) mmol/L Carbon Dioxide 22 (22-30) mmol/L BUN 22 H (7-17) mg/dL Creatinine 0.9 (0.6-1.2) mg/dL Glucose 140 H (65-100) mg/dL Calcium 10.5 H (8.4-10.2) mg/dL - Imaging and Cardiology Echo: pending EKG: report reviewed, image reviewed - EKG Interpretation EKG: no acute changes EKG interpretations - Telemetry EKG Rhythm: Sinus Rhythm Additional Comments: SVT Assessment and Plan Will check BLE Dopplers. No indication for Eliquis from an arrhythmia perspective. Discontinue home Amlodipine/Benazepril. Start PO Lopressor 50mg BID. Plan for Lexiscan stress MPI in AM. NPO after midnight. Ultimately plan for outpatient EP follow-up. Pt seen in conjunction with Dr. Holcomb, who agrees with the assessment and plan of care. - Patient Problems (1) SVT (supraventricular tachycardia) Current Visit: Yes Status: Acute (2) Chest pain Current Visit: Yes Status: Acute (3) Essential hypertension Current Visit: Yes Status: Chronic (4) Obesity Current Visit: Yes Status: Chronic Qualifiers: Body mass index: BMI 45.0-49.9 (5) History of DVT (deep vein thrombosis) Current Visit: Yes Status: Chronic
--- NOTE | 2021-02-02 12:53 | Vascular Lab Report ---
DUPLEX DOPPLER LOWER EXTREMITY VEINS, BILATERAL INDICATION / CLINICAL INFORMATION: Morbid obesity and inactivity. COVID 19 in November 23. Chest pain and SVT. TECHNIQUE: Duplex doppler imaging was performed through the veins of both lower extremities using venous jcarlos zara and other maneuvers. COMPARISON: None available. FINDINGS: RIGHT COMMON FEMORAL VEIN: Negative. RIGHT FEMORAL VEIN: Negative. RIGHT POPLITEAL VEIN: Negative. RIGHT CALF VEINS: Negative. LEFT COMMON FEMORAL VEIN: Negative. LEFT FEMORAL VEIN: Negative. LEFT POPLITEAL VEIN: Negative. LEFT CALF VEINS: Negative. ADDITIONAL FINDINGS: There is no evidence of a popliteal cyst or other significant abnormality. IMPRESSION: No sonographic evidence for DVT in either lower extremity. Signer Name: Garland Russo MD Signed: 02/02/2021 12:48 PM Workstation Name: [id number]
[2021-02-02] MEDS: HYDROcodone/ACETAMINOPHEN 5-325 MG TAB PO PRN (17:11)
[2021-02-02] MEDS: METOPROLOL TARTRATE 50 MG TAB PO SCH (22:14)
[2021-02-03] MEDS: HYDROcodone/ACETAMINOPHEN 5-325 MG TAB PO PRN ×2 (02:06→16:50)
[2021-02-03] MEDS ORDERED: ZIPRASIDONE MESYLATE 20 MG VIAL IM ONE (02:13)
[2021-02-03 05:22] LABS: Basophils # (Auto) 0.1 K/mm3 (0.0-0.1); Eosinophils # (Auto) 0.4 K/mm3 (0.0-0.4); Eosinophils % (Auto) 7.7 % (0.0-4.3); Hematocrit 28.8 % (30.3-42.9); Hemoglobin 9.6 gm/dl (10.1-14.3); Lymphocytes # (Auto) 1.7 K/mm3 (1.2-5.4); Lymphocytes % (Auto) 28.6 % (13.4-35.0); Mean Corpuscular HGB Conc 33 % (30-34); Mean Corpuscular Volume 86 fl (79-97); Monocytes # (Auto) 0.6 K/mm3 (0.0-0.8); Monocytes % (Auto) 10.3 % (0.0-7.3); Platelet Count 299 K/mm3 (140-440); Red Blood Count 3.37 M/mm3 (3.65-5.03)
[2021-02-03 05:59] LABS: Alanine Aminotransferase 8 units/L (7-56); Albumin 3.1 g/dL (3.9-5); Blood Urea Nitrogen 16 mg/dL (7-17); Calcium 9.5 mg/dL (8.4-10.2); Hemolysis Index 7
[2021-02-03 06:00] LABS: BUN/Creatinine Ratio 27
[2021-02-03] MEDS ORDERED: REGADENOSON 0.4 MG/5 ML INJ IV ONE (07:26)
[2021-02-03] MEDS: METOPROLOL TARTRATE 50 MG TAB PO SCH (09:19)
[2021-02-03] MEDS: FAMOTIDINE 20 MG/2 ML INJ IV SCH (09:19)
--- NOTE | 2021-02-03 10:58 | Progress Note ---
Assessment and Plan Pt states she has been on Eliquis x 3 weeks for reported DVT. Will resume and continue for at least 3 months. BLE Dopplers noted to be negative this admission. Echo reviewed - EF 55-60%, mild diastolic dysfxn, no significant valvular abnormalities. Lexiscan stress MPI this AM revealed a small inferior defect. Medical mgmt recommended at this time. May consider [facility] as an outpatient after pt has completed OAC therapy for DVT. Continue PO Lopressor 50mg BID. Otherwise stable cardiac status. Pt may be discharged from a [facility]. Follow-up with EP Dr. Jimenez in our [place] office on 02/27/2021 @ 2pm ([phone]). Pt seen in conjunction with Dr. Holcomb, who agrees with the assessment and plan of care. - Patient Problems (1) SVT (supraventricular tachycardia) Current Visit: Yes Status: Acute (2) Chest pain Current Visit: Yes Status: Resolved (3) Essential hypertension Current Visit: Yes Status: Chronic (4) Obesity Current Visit: Yes Status: Chronic Qualifiers: Body mass index: BMI 45.0-49.9 (5) History of DVT (deep vein thrombosis) Current Visit: Yes Status: Chronic Subjective Date of service: 02/03/21 Principal diagnosis: SVT Interval history: Seen in stress lab this AM. No complaints. Tele reviewed - SR 70s, no events overnight. No further SVT noted since admission. Objective Last Vital Signs Temp 98.5 F 02/03/21 07:33 Pulse 72 02/03/21 07:33 Resp 19 02/03/21 07:33 BP 148/70 02/03/21 07:33 Pulse Ox 100 02/03/21 07:33 - Physical Examination General: No Apparent Distress HEENT: Positive: EOMI, Normocephaly, Mucus Membranes Moist Neck: Positive: neck supple, trachea midline. Negative: JVD/HJR Cardiac: Positive: Reg Rate and Rhythm, S1/S2 Lungs: Positive: clear to auscultation Neuro: Positive: Grossly Intact Abdomen: Positive: Soft. Negative: Tender Skin: Negative: Rash Musculoskeletal: No Pain Extremities: Present: upper extr. pulses, lower extr. pulses, edema (pedal) - Labs and Meds Cardiac Enzymes 02/03/21 Range/Units 04:45 AST 12 (5-40) units/L CBC 02/03/21 Range/Units 04:45 WBC 5.9 (4.5-11.0) K/mm3 RBC 3.37 L (3.65-5.03) M/mm3 Hgb 9.6 L (10.1-14.3) gm/dl Hct 28.8 L D (30.3-42.9) % Plt Count 299 (140-440) K/mm3 Lymph # (Auto) 1.7 (1.2-5.4) K/mm3 [place] # (Auto) 0.6 (0.0-0.8) K/mm3 Eos # (Auto) 0.4 (0.0-0.4) K/mm3 Baso # (Auto) 0.1 (0.0-0.1) K/mm3 Comprehensive Metabolic Panel 02/03/21 Range/Units 04:45 Sodium 140 (137-145) mmol/L Potassium 4.1 (3.6-5.0) mmol/L Chloride 107.3 H (98-107) mmol/L Carbon Dioxide 23 (22-30) mmol/L BUN 16 (7-17) mg/dL Creatinine 0.6 (0.6-1.2) mg/dL Glucose 98 (65-100) mg/dL Calcium 9.5 (8.4-10.2) mg/dL AST 12 (5-40) units/L ALT 8 (7-56) units/L Alkaline Phosphatase 111 (35-129) units/L Total Protein 5.8 L (6.3-8.2) g/dL Albumin 3.1 L (3.9-5) g/dL - Imaging and Cardiology EKG: report reviewed (SVT), image reviewed Pharmacologic stress test: pending Echo: report reviewed (02/02/2021 - EF 55-60%, mild diastolic dysfxn, no significant valvular abnormalities) - Telemetry EKG Rhythm: Sinus Rhythm
[2021-02-03] MEDS ORDERED: APIXABAN 5 MG TAB PO SCH (11:00)
[2021-02-03 12:22] VITALS: BP 147/69
--- NOTE | 2021-02-03 14:15 | Discharge Summary ---
Providers - Providers Date of Admission: 02/02/21 04:10 Date of discharge: 02/03/21 Attending physician: GUERO FUNES 02/02/21 05:24 Consult to Physician [CONS] Routine Comment: Consulting Provider: ANGELINE REYES Physician Instructions: Reason For Exam: chest pain 02/02/21 13:40 Physical Therapy Evaluation and Treat [CONS] Urgent Comment: pt. use w/c and walker at home Reason For Exam: PT eval and traet for weakness Primary care physician: CONCRETING SUPERVISOR Hospitalization Reason for admission: Palpitation/SVT/atypical chest pain Condition: Fair Pertinent studies: BLE Dopplers : negative for DVT Echo: EF 55-60%, mild diastolic dysfxn, no significant valvular abnormalities. Lexiscan stress MPI : a small inferior defect. Medical mgmt recommended at this time. Hospital course: 71 year-old female patient with significant past medical history of hypertension was admitted through emergency room with chest pain and palpitations, EMS noted her heart rate to be 170s and SVT patient had vagal maneuvers and heart rate transiently decreased to 105/min patient does not have any past medical history of cardiac arrhythmias patient is admitted to the hospital symptomatically managed, patient has history of lower extremity DVT , on Eliquis patient symptoms significantly improved, echo revealed normal LV function and mild diastolic dysfunction with no valvular abnormality Lower extremity venous Doppler negative for DVT. Patient was evaluated by cardiology in consultation patient later underwent Lexiscan stress which revealed small inferior defect and cardiology recommended medical management at this point patient's. Medications optimized, symptoms slowly but gradually improved Pt states she has been on Eliquis x 3 weeks for reported DVT. Will resume and continue for at least 3 months. May consider [facility] as an outpatient after pt has completed OAC therapy for DVT Today she is comfortable no new complaints vital signs stable and physical examination is unremarkable Patient is hemodynamically and clinically stable at discharge patient strongly advised to comply with medications diet and follow-up visits patient is stable at discharge. Patient will follow up with primary care physician and cardiology per schedule Stable at discharge Discharge diagnosis: -- Chest pain Current Visit: Yes Status: Acute Aspirin, statin, BB, oxygen supplement if needed Check echo for LV function ejection fraction and cardiology evaluation noted and appreciated Possible stress test tomorrow --SVT (supraventricular tachycardia) Current Visit: Yes Status: Acute Patient's heart rate was in 170s received adenosine 2 doses Currently patient is in sinus heart rate in 80s to 90s continue beta-blockers llow-up with recommendation --h/o Essential hypertension Current Visit: Yes Status: Acute Moderate control continue current antihypertensives As needed hydralazine -- Morbid obesity BMI 49.8 Current Visit: Yes Status: Acute Patient needs weight reduction when medically stable Diet modification, exercise as tolerated and weight reduction, when stable --History of LE DVT (deep vein thrombosis) Current Visit: Yes Status: Acute Continue Eliquis. Protocol. Stable at discharge Disposition: DC-01 TO HOME OR SELFCARE Final Discharge Diagnosis (Prints w/discharge instructions): Atypical chest pain;. Abnormal stress test. Supraventricular tachycardia resolved. Hypertension. History of LE DVT on Eliquis. Morbid obesity BMI 47.9. Chronic pain syndrome Time spent for discharge: 35min Core Measure Documentation - Palliative Care Palliative Care/ Comfort Measures: Not Applicable - Core Measures Any of the following diagnoses?: none Exam - Constitutional Vitals: Temp Pulse Resp BP Pulse Ox 98.5 F 72 19 147/69 100 02/03/21 07:33 02/03/21 12:00 02/03/21 07:33 02/03/21 10:42 02/03/21 07:33 General appearance: Present: no acute distress, well-nourished - EENT Eyes: Present: PERRL, EOM intact - Neck Neck: Present: supple, normal ROM - Respiratory Respiratory effort: normal Respiratory: bilateral: diminished, negative: rales, rhonchi, wheezing - Cardiovascular Rhythm: regular Heart Sounds: Present: S1 & S2 - Extremities Extremities: no ischemia, No edema - Abdominal General gastrointestinal: Present: soft, non-tender, non-distended, normal bowel sounds - Integumentary Integumentary: Present: clear, warm - Musculoskeletal Musculoskeletal: strength equal bilaterally - Psychiatric Psychiatric: appropriate mood/affect, cooperative - Neurologic Neurologic: CNII-XII intact, moves all extremities Plan Activity: advance as tolerated Diet: other (Cardiac diet) Additional Instructions: Follow-up with PARDEEP Jimenez in our [place] office on 02/27/2021 @ 2pm ([phone]). If you have worsening symptoms, contact MD or go to emergency room. Advised diet modification, exercise as tolerated and weight reduction when medically stable Follow up with: PRIMARY CARE, [Primary Care Provider] - 7 Days WOO JIMENEZ MD [Staff Physician] - 02/27/21 2:00 pm Prescriptions: Apixaban [Eliquis] 5 mg PO Q12HR #60 tablet AtorvaSTATin [Lipitor] 40 mg PO QHS #30 tablet Metoprolol [Lopressor TAB] 50 mg PO BID #60 tablet Famotidine [Pepcid] 10 mg PO BID #60 tablet
[2021-02-03] MEDS ORDERED: FAMOTIDINE 10 MG TAB PO SCH (22:00)
== END 2021-02-03 17:30 | disposition home or self-care (01) ==
LOC: ED 02:47 → 4A 04:10
PROVIDERS: ADMIT Hospitalist; ATTEND Internal Medicine
DX: I47.1 Supraventricular tachycardia (principal); R07.89 Other chest pain; I10 Essential (primary) hypertension; E66.01 Morbid (severe) obesity due to excess calories; Z86.718 Personal history of other venous thrombosis and embolism; Z90.710 Acquired absence of both cervix and uterus; Z90.49 Acquired absence of other specified parts of digestive tract; Z98.84 Bariatric surgery status; Z79.899 Other long term (current) drug therapy; Z98.890 Other specified postprocedural states; Z79.82 Long term (current) use of aspirin; Z68.42 Body mass index [BMI] 45.0-49.9, adult
CPT/HCPCS: 36415; 71045; 78452; 80048; 80053; 82550; 82553; 83036; 83735; 84439; 84443; 84484; 85025; 93005; 93017; 93306; 93970; 96374; 96375; 96376; 99285; A9270; A9502; G0378; J0153; J2785

== ENCOUNTER 2021-06-02 16:57 | Emergency (ER) | payer MEDICARE ==
[2021-06-02] MEDS ORDERED: NITROGLYCERIN 0.4 MG TAB SUBL SL PRN (17:27)
--- NOTE | 2021-06-02 17:31 | Emergency Department Report ---
ED General Adult HPI - General Chief complaint: Chest Pain Stated complaint: CHEST PAIN Time Seen by Provider: 06/02/21 17:07 Source: EMS Mode of arrival: Stretcher Limitations: No Limitations - History of Present Illness Initial comments: Patient presents with chest pain. She is describing an aching and heavy chest pain across the precordium as well as involving her shoulders and arms and neck. This started today. She tried taking her usual Flexeril and oxycodone without symptomatic improvement. Symptoms are worse with inspiration. They are not worse with position. They are not specifically worse with exertion. She has had this numerous times before. She states the last time this happened, she was admitted. She reports that we "did all sorts of tests." There is no history of recent travel or trauma. There is no history of cough or congestion. She has no worsening pain or swelling in the legs. Severity scale (0 -10): 7 - Related Data Home Medications Medication Instructions Recorded Confirmed Last Taken Cholecalciferol Vit D3 [Vitamin D3 1,000 unit PO QDAY 06/11/16 06/11/16 06/19/16 1,000 UNIT TAB] Cyanocobalamin (Vitamin B-12) 1,000 mcg PO QDAY 06/11/16 06/11/16 06/19/16 [B-12] Cyclobenzaprine [Flexeril 10 MG 10 mg PO TID 06/11/16 06/11/16 06/20/16 05:30 TAB] Previous Rx's Medication Instructions Recorded Last Taken Type HYDROcodone/APAP 5-325 [[place] 1 each PO Q6HR PRN #30 tablet 06/20/16 Unknown Rx 5-325 mg TAB] Apixaban [Eliquis] 5 mg PO Q12HR #60 tablet 02/03/21 Unknown Rx AtorvaSTATin [Lipitor] 40 mg PO QHS #30 tablet 02/03/21 Unknown Rx Famotidine [Pepcid] 10 mg PO BID #60 tablet 02/03/21 Unknown Rx Metoprolol [Lopressor TAB] 50 mg PO BID #60 tablet 02/03/21 Unknown Rx Allergies Allergy/AdvReac Type Severity Reaction Status Date / Time aspirin Allergy Upset Verified 06/11/16 11:50 stomach sulfamethoxazole Allergy Rash Verified 06/11/16 11:50 [From Bactrim] trimethoprim [From Bactrim] Allergy Rash Verified 06/11/16 11:50 ED Review of Systems ROS: Stated complaint: CHEST PAIN Other details as noted in HPI Comment: All other systems reviewed and negative Constitutional: denies: fever Eyes: denies: eye pain ENT: denies: throat pain Respiratory: denies: cough Cardiovascular: as per HPI Endocrine: denies: unexplained weight loss Gastrointestinal: denies: abdominal pain Genitourinary: denies: dysuria Musculoskeletal: denies: back pain Skin: denies: rash Neurological: denies: headache Hematological/Lymphatic: denies: easy bruising ED Past Medical Hx - Past Medical History Hx Hypertension: Yes (FOR 15+ YRS, DR. TEE FLORES- PCP) Hx Congestive Heart Failure: Yes Hx HIV: No - Family History Family history: hypertension - Social History Smoking Status: Never Smoker - Medications Home Medications: Home Medications Medication Instructions Recorded Confirmed Last Taken Type Cholecalciferol Vit D3 [Vitamin D3 1,000 unit PO QDAY 06/11/16 06/11/16 06/19/16 History 1,000 UNIT TAB] Cyanocobalamin (Vitamin B-12) 1,000 mcg PO QDAY 06/11/16 06/11/16 06/19/16 History [B-12] Cyclobenzaprine [Flexeril 10 MG 10 mg PO TID 06/11/16 06/11/16 06/20/16 05:30 History TAB] HYDROcodone/APAP 5-325 [[place] 1 each PO Q6HR PRN #30 tablet 06/20/16 Unknown Rx 5-325 mg TAB] Apixaban [Eliquis] 5 mg PO Q12HR #60 tablet 02/03/21 Unknown Rx AtorvaSTATin [Lipitor] 40 mg PO QHS #30 tablet 02/03/21 Unknown Rx Famotidine [Pepcid] 10 mg PO BID #60 tablet 02/03/21 Unknown Rx Metoprolol [Lopressor TAB] 50 mg PO BID #60 tablet 02/03/21 Unknown Rx ED Physical Exam - General Limitations: No Limitations, Other (Pulse ox was noted and normal. Is not hypoxic) General appearance: alert, in no apparent distress, obese (Morbid) - Head Head exam: Present: atraumatic, normocephalic - Eye Eye exam: Present: normal appearance, EOMI. Absent: scleral icterus - ENT ENT exam: Present: normal exam, normal orophraynx - Neck Neck exam: Present: normal inspection. Absent: tenderness - Respiratory Respiratory exam: Present: normal lung sounds bilaterally. Absent: respiratory distress - Cardiovascular Cardiovascular Exam: Present: regular rate, normal rhythm - GI/Abdominal GI/Abdominal exam: Present: soft. Absent: tenderness - Extremities Exam Extremities exam: Present: normal capillary refill, pedal edema (3+ bilateral). Absent: calf tenderness - Back Exam Back exam: Absent: CVA tenderness (R), CVA tenderness (L) - Neurological Exam Neurological exam: Present: alert, oriented X3, CN II-XII intact, reflexes normal. Absent: motor sensory deficit - Psychiatric Psychiatric exam: Present: normal affect, normal mood - Skin Skin exam: Present: warm, dry ED Course Vital Signs 06/02/21 06/02/21 16:58 18:46 Temperature 98.7 F Pulse Rate 72 73 Respiratory 18 Rate Blood Pressure 174/66 Blood Pressure 147/79 [Left] O2 Sat by Pulse 100 Oximetry - Reevaluation(s) Reevaluation #1: 06/02/21 17:31 EKG and labs ordered. Old records reviewed. Reevaluation #2: 06/02/21 19:15 Nitro did improve the patient's blood pressure. It did nothing to address her pain. She was given fentanyl. She was subsequently discharged. ED Medical Decision Making - Lab Data Result diagrams: 06/02/21 17:59 06/02/21 17:59 Rhythm strip: Normal sinus rhythm without ectopy per monitor observed in seconds. - EKG Data -: EKG Interpreted by Sd - EKG Data 06/02/21 18:03 1735-EKG shows a sinus rhythm at 66. QRS is normal at 93. QT corrected is normal at 424. There is no ST elevation to suggest STEMI. There is no ST depression suggestive of ischemia. There is good R wave progression. This is a normal EKG and does not appear to be any different than prior EKG. - Medical Decision Making Patient presents with chest pain of unclear allergy. She had a stress test in February of this year that was negative as read by cardiology. Etiology for the pain today is unclear. It does not sound cardiac in nature. It is not exertional. She has had significant cardiac work-up as recently as February of this year including a negative chemical stress test. She does not have evidence of STEMI or NSTEMI on EKG. Clinically, patient is not short of breath. There is no cough. She has no fevers or chills. I do not believe this represents pn eumonia. There are no adventitious breath sounds to suggest pneumonia. She does not have any adventitious breath sounds or change in breath sounds suggestive of pulmonary embolism. She does not have symptoms that would suggest coronavirus. There is no pulse deficit that would suggest aortic dissection. She did not describe her pain as tearing and does not have any back pain associated with this. There is no evidence of pulsatile mass or abdominal component there was just referred pain from an aneurysm. Pain is not pleuritic. She is not dyspneic. She is not hypoxic. I do not believe this represents PE. Critical Care Time: No Critical care attestation.: If time is entered above; I have spent that time in minutes in the direct care of this critically ill patient, excluding procedure time. ED Disposition Clinical Impression: Precordial chest pain, Uncontrolled hypertension Disposition: HOME / SELF CARE / HOMELESS Is pt being admited?: No Condition: Stable Instructions: Nonspecific Chest Pain, Adult, Hypertension (ED), Hypertension, Adult, [id number], Pain Without a Known Cause Additional Instructions: Drink plenty water. Continue home medication. Return for problems. Follow-up with your regular doctor. Follow-up with the referral physician if you do not have a regular doctor. Referrals: PRIMARY CAREMD [Referring] - 3-5 Days CHA CULLEN MD [Staff Physician] - 3-5 Days
--- NOTE | 2021-06-02 18:05 | XRay Report ---
CHEST 2 VIEWS INDICATION / CLINICAL INFORMATION: Chest pain. COMPARISON: None available. FINDINGS: SUPPORT DEVICES: None. HEART / MEDIASTINUM: The heart size and pulmonary vasculature are normal. The aorta is normal in lenny dinh. LUNGS / PLEURA: There is mild left basilar subsegmental atelectasis. The lungs are otherwise clear. N o pleural abnormality is seen. No pneumothorax. ADDITIONAL FINDINGS: There is mild chronic elevation of the left hemidiaphragm. IMPRESSION: Mild left basilar subsegmental atelectasis. Signer Name: Garland Russo MD Signed: 06/02/2021 6:01 PM Workstation Name: [id number]
[2021-06-02 18:21] LABS: Hematocrit 34.4 % (30.3-42.9); Hemoglobin 11.7 gm/dl (10.1-14.3); Mean Corpuscular HGB Conc 34 % (30-34); Mean Corpuscular Volume 82 fl (79-97); Platelet Count 347 K/mm3 (140-440); Red Blood Count 4.19 M/mm3 (3.65-5.03); Red Cell Distribution Width 19.8 % (13.2-15.2)
[2021-06-02 18:37] LABS: Blood Urea Nitrogen 21 mg/dL (7-17); Calcium 9.9 mg/dL (8.4-10.2); Hemolysis Index 6
[2021-06-02 18:41] LABS: BUN/Creatinine Ratio 30
[2021-06-02] MEDS ORDERED: fentaNYL 100 MCG/2 ML INJ IV ONE (19:13)
[2021-06-02 20:53] VITALS: BP 144/78
--- NOTE | 2021-06-06 18:40 | Electrocardiograph Report ---
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
== END 2021-06-02 20:53 | disposition home or self-care (01) ==
LOC: ED 16:57
DX: R07.2 Precordial pain (principal); I11.0 Hypertensive heart disease with heart failure; I50.9 Heart failure, unspecified; M25.519 Pain in unspecified shoulder; M79.602 Pain in left arm; M79.601 Pain in right arm; M50.90 Cervical disc disorder, unspecified, unspecified cervical region; Z88.8 Allergy status to other drugs, medicaments and biological substances; Z88.1 Allergy status to other antibiotic agents
CPT/HCPCS: 36415; 71046; 80048; 84484; 85027; 93005; 96374; 99284; J3010